=== PATIENT | female | born 1960 | race African-American/Black ===

== ENCOUNTER 2016-07-01 08:47 | Observation (INO) | payer BC ==
--- NOTE | ~2016-07-01 | HP ---
History And Physical [place] [id number] [facility] [place]. [address] NAME: ALIVIA STARKS : 64 STATUS : ADM David PAT#: [id number] AGE: 56 ADM/REG DATE : 07/01/16 MR#: [id number] REPORT SERV DATE: 07/01/16 DICTATED BY: MITCH ESCALERA DATE: 07/01/16 REPORT STATUS : Draft TRANSCRIBED BY: NIKIA DATE: 07/01/16 DATE OF ADMISSION: 07/01/2016 PRIMARY CARE PROVIDER: Dr. Maradiaga. CHIEF COMPLAINT: Chest pressure. HISTORY OF PRESENT ILLNESS: A pleasant 56-year-old female, awoke this morning around 0500 with chest pain described as a pressure rated 10/10 with associated diaphoresis, shortness of breath, and nausea. She states it did not radiate elsewhere. She did take two baby aspirin, which relieved her chest pressure, but she then developed a sharp chest pain that resolved in the emergency room. She denies any reoccurrence of the chest pain. She does report episodes of orthopnea and occasional bilateral lower extremity edema. She denies any recent illness, and she is currently pain free. PAST MEDICAL HISTORY: 1. Hypertension. 2. Dyslipidemia. 3. Borderline diabetic. 4. Tobacco abuse. 5. Self reports abnormal echo recently performed by PCP related to her valve with no intervention planned. 6. GERD. PAST SURGICAL HISTORY: Cholecystectomy and C-sections twice. SOCIAL HISTORY: She is single. She has three children. She smokes a half pack per day for 39 years. Denies alcohol or illicits. FAMILY HISTORY: Mother with history of CAD, MT, and stents, age unknown, and a pacemaker. REVIEW OF SYSTEMS: A 14-point review of systems performed, significant for HPI. No other contributory diagnoses identified. ALLERGIES: NO KNOWN DRUG ALLERGIES. HOME MEDICINES: Amlodipine 10 mg daily, BC powders p.r.n., benazepril/hydrochlorothiazide 20/25 daily, vitamin D 50,000 units weekly, Protonix 40 mg daily. PHYSICAL EXAMINATION: VITAL SIGNS: Bilateral blood pressures on arrival, right 136/68, left 132/69; pulse 61; respirations 18; temperature 97.8; O2 saturation 98% on room air. Height 5 feet 6 inches. Weight 163 pounds. BMI 26. GENERAL: Cooperative, in no apparent distress. HEENT: Pupils 2 mm, sclera nonicteric. Nares patent. Moist mucous membranes. No xanthelasma. History And Physical [place] [id number] [facility] [place]. [address] NAME: ALIVIA STARKS : 64 STATUS : ADM David PAT#: [id number] AGE: 56 ADM/REG DATE : 07/01/16 MR#: [id number] REPORT SERV DATE: 07/01/16 DICTATED BY: MITCH ESCALERA DATE: 07/01/16 REPORT STATUS : Draft TRANSCRIBED BY: NIKIA DATE: 07/01/16 NECK: Trachea midline, no thyromegaly. No JVD. No bruits. LYMPH: No cervical lymphadenopathy. No supraclavicular lymphadenopathy. RESPIRATORY: Unlabored respirations. Breath sounds clear bilaterally to posterior auscultation. No wheezes or rhonchi. CARDIOVASCULAR: Regular rate. No murmur, rub or gallop appreciated. Extremities without edema. Pulses 2+ bilaterally. ABDOMEN: Soft, nontender, nondistended, normal bowel sounds auscultated throughout. No organomegaly. SKIN: Warm, dry extremities. No pallor, or cyanosis. PSYCHIATRIC: Appropriate affect. Alert, oriented x3. LABORATORY DATA: Troponin less than 0.02 twice. Potassium 3.2 (to be repleted per protocol), BUN 18, creatinine 0.74, glucose 99. WBC 8.3, hemoglobin 13.0, hematocrit 36.8, and platelet count 174,000. EKG, sinus bradycardia with RBBB. Echo; recent echo at outpatient imaging per PCP. Report requested from [facility]'s office. ASSESSMENT AND PLAN: 1. Chest pain. The patient has been observed in the CPOU. Two sets of cardiac markers negative. EKG, stable. Chest pain, resolved. The patient has been held n.p.o. We will proceed with MPI today. If anything is suggestive of ischemia, Cardiology referral will be initiated; otherwise, the patient will be asked to follow up with PCP in one to two weeks with all studies being sent to that office. 2. Hypertension, well managed currently. We will resume Norvasc after stress test. 3. Borderline diabetic. Continue home regimen and diet. 4. Dyslipidemia. Followed by PCP. 5. Ongoing tobacco abuse. Counseled regarding cessation. URIAH/NIKIA KENIA Perales, ROD WELDER-BC / [id number] CC: KENIA Perales, ROD WELDER-BC
[2016-07-01 08:37] LABS: BASOPHILS 0.2 %; BASOPHILS ABSOLUTE 0.02 10/3/uL (0.0-0.16); EOSINOPHILS 0.4 %; EOSINOPHILS ABSOLUTE 0.03 10/3/uL (0.0-0.53); IMMATURE GRANULOCYTES 0.1 %; IMMATURE GRANULOCYTES ABSOLUTE 0.01 10/3/uL (0.0-0.11); LYMPHOCYTES 18.9 %; LYMPHOCYTES ABSOLUTE 1.57 10/3/uL (0.67-4.30); MEAN CORPUS HGB CONC 35.3 g/dL (32.0-36.0); MEAN CORPUSCULAR HEMOGLOB 32.2 pg (26.0-34.0); MEAN CORPUSCULAR VOLUME 91.1 fL (80-100); MEAN PLATELET VOLUME 10.3 fL (9.2-13.0); MONOCYTES 6.6 %; MONOCYTES ABSOLUTE 0.55 10/3/uL (0.21-1.20); NEUTROPHILS 73.8 %; NEUTROPHILS ABSOLUTE 6.13 10/3/uL (2.02-8.40); PLATELET COUNT 174 10/3/uL (150-400); RBC DISTRIBUTION WIDTH 12.8 % (12.0-16.0); RED CELL COUNT 4.04 10/6/uL (4.0-5.6); WHITE BLOOD CELLS 8.3 10/3/uL (4.5-10.5)
[2016-07-01 08:39] LABS: HEMATOCRIT 36.8 % (36.0-48.0); MANUAL DIFF NO %
[2016-07-01 08:45] LABS: PROTIME (NOT ORD) 13.5 SEC (12.0-14.5)
[2016-07-01 08:53] LABS: ALBUMIN 3.6 G/DL (3.5-5.0); ALKALINE PHOSPHATASE 74 U/L (45-117); BUN (BLOOD UREA NITROGEN) 18 MG/DL (6-23); CALCIUM, SERUM 8.8 MG/DL (8.5-10.4); CHLORIDE, SERUM 102 MMOL/L (96-112); CO2 (CARBON DIOXIDE) 30 MMOL/L (24-34); CREATININE 0.74 MG/DL (0.55-1.02); GFR AFRICAN AMERICAN 106 ML/MIN (>=60); GFR NON AFRICAN AMERICAN 92 ML/MIN (>=60); GLOBULIN 3.7 G/DL (2.5-4.1); GLUCOSE, SERUM 99 MG/DL (60-99); POTASSIUM, SERUM 3.2 MMOL/L (3.5-5.3); SGOT(AST) 48 U/L (5-40); SGPT(ALT) 31 U/L (5-65); SODIUM, SERUM 140 MMOL/L (135-148); TOTAL BILIRUBIN 0.6 MG/DL (0-1.2); TOTAL PROTEIN 7.3 G/DL (6.0-8.5); TROPONIN I <0.02 NG/ML (<0.05)
[2016-07-01] MEDS ORDERED: BC HEADACHE PO (10:35)
[2016-07-01] MEDS ORDERED: LOTENSIN HCT1 TA3 PO (10:35)
[2016-07-01] MEDS ORDERED: NORV10 PO (10:35)
[2016-07-01] MEDS ORDERED: PROTONIX PO (10:36)
[2016-07-01] MEDS ORDERED: VITD PO (10:36)
[2016-07-01 12:54] LABS: TROPONIN I <0.02 NG/ML (<0.05)
[2016-07-01 16:42] LABS: CHOL/HDL RATIO(NOT ORDER) 3.8 (0-5); CHOLESTEROL 180 MG/DL (< 200); HDL CHOLESTEROL 47 MG/DL (> 49); LDL CHOLESTEROL 114 MG/DL (< 130); NON-HDL CHOLESTEROL 133 MG/DL (< 160)
[2016-07-01 16:44] LABS: TRIGLYCERIDE 97 MG/DL (< 150)
[2016-07-01] MEDS ORDERED: COREG3 PO (20:49)
[2016-07-01] MEDS ORDERED: NITROSTAT0.4 MG SL (20:52)
== END 2016-07-01 21:38 | disposition home or self-care (01) ==
LOC: ER 08:47 → CDU1 11:47 → CDU2 11:59
PROVIDERS: Clinical Nurse Specialist; Emergency Medicine
DX: I20.8 Other forms of angina pectoris (principal); I10 Essential (primary) hypertension; E78.5 Hyperlipidemia, unspecified; R73.03 Prediabetes; F17.210 Nicotine dependence, cigarettes, uncomplicated; K21.9 Gastro-esophageal reflux disease without esophagitis; Z90.49 Acquired absence of other specified parts of digestive tract
CPT/HCPCS: 71010; 78452; 80053; 80061; 84132; 84484; 84703; 85025; 85610; 93005; 93017; 93458; 96374; 99152; 99153; 99285; A9270-GY; A9502; C1769; C1887; C1894; G0378; J1885; J2250; J3010; Q9967